=== PATIENT | male | born 1990 | race African-American/Black ===

== ENCOUNTER 2017-04-08 12:45 | Emergency (ER) | payer SELFPAY ==
[~2017-04-08] VITALS: Ht 180.3 cm; Wt 98.0 kg
[2017-04-08 12:46] VITALS: BP 136/79; PULSE 65; RESP 20; TEMP 98.1; O2SAT 98
--- NOTE | 2017-04-08 13:28 | PD ---
HPI Chief Complaint: Lump, Cyst, Hernia Time Seen by Provider: 13:23 Travel History International Travel<30 days: No Contact w/Intl Traveler<30days: No Traveled to known affect area: No History of Present Illness HPI 26-year-old -F[place] male presents the emergency department with pain and swelling in the left upper medial thigh. Patient is concerned about possible hernia. Patient states he noticed a small lump there is mildly tender approximately 2 weeks ago. Patient states several days ago he was running off a cart in a parking lot when he had sudden onset pain radiating down the left leg originating in the left upper medial thigh. He states he was a palpable lump in this area which started to go down the last 2 days. His pain now is about a 4 out of 10. It is worse with movement. It is not worse with cough. He has no bowel or bladder changes. He has no known drug allergies. FORMERLY [facility], [facility] Social History Alcohol Use: Yes Tobacco Use: No Substance Use: No Allergies-Medications (Allergen,Severity, Reaction): Coded Allergies: No Known Allergies (Unverified , 04/08/17) Review of Systems Except as stated in HPI: all other systems reviewed are Neg General / Constitutional: No: Fever Eyes: No: Visual changes HENT: No: Headaches Cardiovascular: No: Chest Pain or Discomfort Respiratory: No: Shortness of Breath Gastrointestinal: No: Abdominal Pain Genitourinary: No: Dysuria Musculoskeletal: Positive: Myalgias, Pain (see history present illness.) Skin: No Rash Neurologic: No: Weakness Psychiatric: No: Depression Endocrine: No: Polydipsia Hematologic/Lymphatic: No: Easy Bruising Physical Exam Narrative GENERAL: Patient is in no acute distress. He is easily ambulatory to the room. SKIN: Warm and dry. Normal color. Normal turgor. No ecchymosis. No rash. HEAD: Atraumatic. Normocephalic. EYES: Pupils equal and round. No scleral icterus. No injection or drainage. ENT: No nasal bleeding or discharge. Mucous membranes pink and moist. Pharynx is clear. NECK: Trachea midline. Supple and nontender. CARDIOVASCULAR: Regular rate and rhythm. RESPIRATORY: No accessory muscle use. Clear to auscultation. Breath sounds equal bilaterally. GASTROINTESTINAL: Abdomen soft, non-tender, nondistended. Hepatic and splenic margins not palpable. Patient has no palpable hernia in the left inguinal canal. He has no testicular tenderness or swelling on the left. No increased pain with cough or Valsalva. MUSCULOSKELETAL: Extremities without clubbing, cyanosis, or edema. No obvious deformities. Patient has slightly swollen tender area in the anterior medial proximal left thigh consistent with lipoma versus muscular tear/strain. NEUROLOGICAL: Awake and alert. No obvious cranial nerve deficits. Motor grossly within normal limits. Five out of 5 muscle strength in the arms and legs. Normal speech. PSYCHIATRIC: Appropriate mood and affect; insight and judgment normal. Data Data Last Documented VS Vital Signs Date Time Temp Pulse Resp B/P Pulse Ox O2 Delivery O2 Flow Rate FiO2 04/08/17 12:46 98.1 65 20 136/79 98 Room Air MDM Medical Decision Making Medical Screen Exam Complete: Yes Emergency Medical Condition: Yes Differential Diagnosis Left inguinal hernia. Left groin pull. Left thigh strain. Lipoma Narrative Course I feel the patient is suffering from a strain of the left medial thigh, and my suspicion for hernia is very low. Recommend treating the patient empirically with ibuprofen 600 mg 4 times a day # 40. Patient's use heat and ice and gentle stretching over the next 2 weeks. Patient should follow with his primary care physician if symptoms continue or return to emergency department as needed. Diagnosis Primary Impression: Muscle strain of left thigh Qualified Code: S76.912A - Muscle strain of left thigh, initial encounter Referrals: [facility] Patient Instructions: General Instructions, Groin Strain (ED) Additional Instructions: I feel the patient is suffering from a strain of the left medial thigh, and my suspicion for hernia is very low. Recommend treating the patient empirically with ibuprofen 600 mg 4 times a day # 40. Patient's use heat and ice and gentle stretching over the next 2 weeks. Patient should follow with his primary care physician if symptoms continue or return to emergency department as needed. Med/Other Pt SpecificInfo: Prescription(s) given Disposition: 01 DISCHARGE HOME Condition: Stable Khris Rodas Apr 08, 2017 13:28
[2017-04-08] MEDS ORDERED: IBUP-232 PO (13:29)
== END 2017-04-08 13:58 | disposition home or self-care (01) ==
LOC: NEPK 12:45
DX: S86.912A Strain of unspecified muscle(s) and tendon(s) at lower leg level, left leg, initial encounter (principal); X50.0XXA Overexertion from strenuous movement or load, initial encounter; Y93.02 Activity, running; Y92.481 Parking lot as the place of occurrence of the external cause
CPT/HCPCS: 99283

== ENCOUNTER 2017-12-22 17:23 | Emergency (ER) | payer SELFPAY ==
[~2017-12-22] VITALS: Ht 177.8 cm; Wt 90.0 kg
[~2017-12-22 17:23] MED LIST: IBUP-232 PO
[2017-12-22 17:34] VITALS: BP 135/75; PULSE 62; RESP 18; TEMP 98.4; O2SAT 100
--- NOTE | 2017-12-22 21:54 | RADRPT ---
EXAM DATE/TIME: 12/22/2017 21:26 [facility] COMPARISON: No previous studies available for comparison. INDICATIONS : Left leg swelling. MEDICAL HISTORY : Alcohol use. SURGICAL HISTORY : Luebbering teeth removed. ENCOUNTER: Initial ACUITY: 1 week PAIN SCORE: 4/10 LOCATION: Left leg. TECHNIQUE: Venous ultrasound of the leg was performed from the inguinal ligament to the proximal calf. Real-thomas e, color Doppler and spectral tracing, compression and augmentation techniques were used. FINDINGS: There is normal compressibility of the deep venous system from the inguinal region to the proximal ca lf. No echogenic clot is seen in the lumen of the common femoral, femoral, popliteal, and posterior tibial veins. There is a normal response of the venous system to proximal and distal augmentation an d respiration. CONCLUSION: No evidence of deep venous thrombosis within the left lower extremity. Juice Webb MD on December 22, 2017 at 21:53 Board Certified Radiologist. This report was verified electronically.
--- NOTE | 2017-12-22 21:55 | RADRPT ---
EXAM DATE/TIME: 12/22/2017 21:05 [facility] COMPARISON: No previous studies available for comparison. INDICATIONS : Pain during exercise. Swelling posterior on calf area. MEDICAL HISTORY : None. SURGICAL HISTORY : None. ENCOUNTER: Initial ACUITY: 2 weeks PAIN SCORE: 4/10 LOCATION: Left lower leg. FINDINGS: Two view examination of the left tibia demonstrates no evidence of fracture or dislocation. Bony min eralization is normal. The soft tissue structures are intact. CONCLUSION: No acute disease. Juice Webb MD on December 22, 2017 at 21:54 Board Certified Radiologist. This report was verified electronically.
--- NOTE | 2017-12-22 21:57 | RADRPT ---
EXAM DATE/TIME: 12/22/2017 21:05 [facility] COMPARISON: TIBIA/FIBULA LEFT (AP/LAT), December 22, 2017, 21:05. INDICATIONS : Pain during exercise. Swelling posterior on calf area. MEDICAL HISTORY : None. SURGICAL HISTORY : None. ENCOUNTER: Initial ACUITY: 2 weeks PAIN SCORE: 4/10 LOCATION: Left ankle. FINDINGS: Three view exam was performed of the left ankle. The bony structures are in normal alignment. No ev idence of fracture, dislocation, or soft tissue swelling. The ankle mortise is intact. No radiopaqu e foreign bodies are seen. Bony mineralization is normal. CONCLUSION: No acute disease. Juice Webb MD on December 22, 2017 at 21:54 Board Certified Radiologist. This report was verified electronically.
--- NOTE | 2017-12-23 00:08 | PD ---
HPI Chief Complaint: Injury Time Seen by Provider: 20:49 Travel History International Travel<30 days: No Contact w/Intl Traveler<30days: No Traveled to known affect area: No History of Present Illness HPI Patient is a 26-year-old male who comes in rating of pain and swelling to his left lower leg. He says 2 weeks ago he was doing a kick in his martial arts class, when he felt a pain to the back of his leg. He says it felt as if "someone elbowed me in the back of the leg." He denies any direct contact with the back of his leg. He did not land hard on his foot, and says the pain happened when his leg was in the air. He has been walking on it since then. He says yesterday he misstepped, and this exacerbated the pain. He has been taking [id number] pain medication with minimal relief. Severity is mild to moderate. PFSH Past Medical History Diminished Hearing: No Immunizations Current: No Past Surgical History Oral Surgery: Yes (wisdom teeth) Social History Alcohol Use: Yes Tobacco Use: No Substance Use: No Allergies-Medications (Allergen,Severity, Reaction): Coded Allergies: No Known Allergies (Unverified , 04/08/17) Reported Meds & Prescriptions Reported Meds & Active Scripts Active Ibuprofen 600 Mg Tab 600 Mg PO Q6H PRN Review of Systems General / Constitutional: No: Fever, Chills HENT: No: Headaches, Lightheadedness Cardiovascular: No: Chest Pain or Discomfort Respiratory: No: Shortness of Breath Gastrointestinal: No: Nausea, Vomiting Musculoskeletal: Positive: Edema, Pain Skin: No Change in Pigmentation, No Lesions Neurologic: No: Weakness, Dizziness Physical Exam Narrative GENERAL: Awake and alert, no acute distress. SKIN: Focused skin assessment warm/dry. No erythema or signs of infection. HEAD: Atraumatic. Normocephalic. EYES: Pupils equal and round. No scleral icterus. ENT: Mucous membranes pink and moist. CARDIOVASCULAR: Regular rate and rhythm. No murmur appreciated. RESPIRATORY: No accessory muscle use. Clear to auscultation. Breath sounds equal bilaterally. MUSCULOSKELETAL: No obvious deformities. No clubbing. No cyanosis. Edema of the left calf, tender to palpation. Pedal pulses intact. Allen test is negative for Achilles tendon rupture. NEUROLOGICAL: Awake and alert. No obvious cranial nerve deficits. Motor grossly within normal limits. Normal speech. Data Data Last Documented VS Vital Signs Date Time Temp Pulse Resp B/P (MAP) Pulse Ox O2 Delivery O2 Flow Rate FiO2 12/22/17 17:34 98.4 62 18 135/75 (95) 100 Orders Orders Ankle, Complete ([id number]) (12/22/17 ) Tibia/Fibula (Ap/Lat) (12/22/17 ) Us Leg Venous Doppler (12/22/17 ) Ct Tib/Fib W/O Iv Contrast (12/22/17 ) Ed Discharge Order (12/23/17 00:03) MDM Medical Decision Making Medical Screen Exam Complete: Yes Emergency Medical Condition: Yes Medical Record Reviewed: Yes Differential Diagnosis Muscle tear versus muscle strain versus fracture Narrative Course Patient is a 26-year-old male comes in complaining of pain and swelling to his left lower leg. Exam shows swelling and tenderness of the left calf. X-ray performed shows no acute fracture. Ultrasound of the leg shows no evidence of DVT. There is concern for a muscle tear, CAT scan of the lower extremity ordered. However, patient does not want to wait to have the CT scan as he says that he has to work soon. He will follow-up with orthopedics. Advised to take ibuprofen as needed for pain. Advised to return anytime for any worsening symptoms. Diagnosis Primary Impression: Muscle strain Referrals: Tra Henry Jr., MD call for appointment Patient Instructions: General Instructions, Muscle Strain (ED) Additional Instructions: Follow-up with orthopedics as needed. Take ibuprofen as needed for pain. Return to the ED as needed for any worsening symptoms. Disposition: 01 DISCHARGE HOME Condition: Stable Ying Cortes MD Dec 23, 2017 00:08
== END 2017-12-23 00:18 | disposition home or self-care (01) ==
LOC: NEPD 17:23
DX: S86.912A Strain of unspecified muscle(s) and tendon(s) at lower leg level, left leg, initial encounter (principal); X50.9XXA Other and unspecified overexertion or strenuous movements or postures, initial encounter; Y93.75 Activity, martial arts
CPT/HCPCS: 73590; 73610; 93971; 99284